=== PATIENT | male | born 2000 | race Caucasian/White ===

== ENCOUNTER 2023-05-10 17:01 | Emergency (ER) | payer BC, SELFPAY ==
[2023-05-10 17:12] VITALS: BP 116/76; PULSE 91; RESP 18; TEMP 37.3; O2SAT 98; BMI 26.4
--- NOTE | 2023-05-10 17:30 | ED.WOUNDLAC ---
HPI - Wound/Laceration General Time Seen by Provider: 17:30 Date Seen: 05/10/23 Chief Complaint: Laceration/Wound Stated Complaint: Lac middle L finger Time Seen by Provider: 05/10/23 17:05 Source: patient and RN notes reviewed Mode of arrival: ambulatory Limitations: no limitations History of Present Illness HPI narrative: Patient is a 22-year-old male coming in with complaint of a laceration on his finger. He cut his left 3rd finger while slicing vegetables for dinner. He tried skin glue but the flap kept opening and bleeding. Denies any other injury. No numbness tingling. We did look up his tetanus and his last tetanus was in 2010. He does agree to have this updated today. This wound happened just prior to arrival. Place: home Patient tetanus UTD: No Context: accidental Associated symptoms: none Related Data Home Medications Medication Instructions Recorded Confirmed No Known Home Medications 03/22/23 03/23/23 Allergies Allergy/AdvReac Type Severity Reaction Status Date / Time No Known Drug Allergies Allergy Verified 03/23/23 12:01 Review of Systems Narrative: As per HPI PFSH PFSH Social History Smoking Status: Current every day smoker Do you use any of these nicotine containing products: Vaping Products Second hand tobacco smoke exposure: No How often do you have a drink containing alcohol: 2-4 times a month How many standard drinks containing alcohol do you have on a typical day: 3 or 4 AUDIT-C Alcohol total score: 3 Non-prescribed substance use: former substance user Non-prescribed substance use details: denies current use service: No Exam Const: Vital Signs, click to edit/add: Vital Signs - 24 hr 05/10/23 17:12 Temperature 99.2 F Pulse Rate [Right Pulse Oximeter] 91 Respiratory Rate 18 Blood Pressure [Ri ght Upper Arm] 116/76 Pulse Oximetry 98 Oxygen Delivery Me thod Room Air Documenting provider has reviewed patient's vital signs: yes Other: Patient has a flap-type laceration along the lateral distal 3rd finger. It is along the lateral bulb of the finger. Does not go into the nail bed area but is just juxtaposed. It is about 0.75 cm in length. It is oblique in his angle into the subcutaneous tissue. There is some mild oozing. Reviewed with patient that this would certainly benefit from repair with stitches. I do not think glue is going to hold this down. He states his skin glue did not. Nursing staff had already cleaned and irrigated the wound. Course Course Hospital Course: Patient will have laceration repair, tetanus updated. He agrees to the plan. Vital Signs Vital signs: Initial Vital Signs Temperature 99.2 F 05/10/23 17:12 Temperature Source Temporal Artery Scan 05/10/23 17:12 Pulse Rate 91 05/10/23 17:12 Respiratory Rate 18 05/10/23 17:12 Blood Pressure 116/76 05/10/23 17:12 Blood Pressure Mean 89 05/10/23 17:12 Blood Pressure Position Sitting 05/10/23 17:12 Pulse Oximetry 98 05/10/23 17:12 Oxygen Delivery Method Room Air 05/10/23 17:12 Vital Signs Temperature 99.2 F 05/10/23 17:12 Pulse Rate 91 05/10/23 17:12 Respiratory Rate 18 05/10/23 17:12 Blood Pressure 116/76 05/10/23 17:12 Pulse Oximetry 98 05/10/23 17:12 Oxygen Delivery Method Room Air 05/10/23 17:12 Temperature 99.2 F 05/10/23 17:12 Pulse Rate 91 05/10/23 17:12 Respiratory Rate 18 05/10/23 17:12 Blood Pressure 116/76 05/10/23 17:12 Pulse Oximetry 98 05/10/23 17:12 Oxygen Delivery Method Room Air 05/10/23 17:12 Critical Care Time Critical Care Time Critical Care Time: No Discharge Plan Discharge Clinical Impression: Finger laceration Patient Disposition: Home, Self-Care Condition: Stable Instructions: Care For Your Stitches (ED), Finger Laceration (ED) Additional Instructions: Need to schedule a clinic follow-up in about 7-10 days to assess the wound for suture removal. May wash hands and shower but should otherwise keep the wound clean and dry. Use bandages and bacitracin certainly when up and about in public or if working. Need to try to keep this wound clean and dry. If there is any concern for infection, please seek re-evaluation. Tetanus was updated with a Tdap today. Prescriptions: No Action No Known Home Medications Follow Up/Referrals: Provider,Not a Local [Primary Care Provider] - Stand Alone Forms: [facility] Info Instructions Procedures Laceration Laceration 1: Pre procedure diagnosis: Left 3rd finger laceration Post procedure diagnosis: Same Name of person performing procedure: Karis Ortega Site: other (Left 3rd finger) Side (If applicable): left Size (cm): 0.75 Description: flap Depth: simple, single layer Local Anesthetic: lidocaine 2% Amount of anesthesia used (mL): 3 Pre-repair: wound explored and irrigated extensively Skin layer closed with: other (Ethilon) Size (cm): 4-0 Number of sutures: 4 Technique: simple, interrupted Estimated blood loss (if any): none Conclusion: patient tolerated procedure
[2023-05-10] MEDS: TETANUS/DIPHTH/PERTUSSIS 0.5 ML SYRINGE IM (17:58)
== END 2023-05-10 18:09 | disposition home or self-care (01) ==
PROVIDERS: Emergency Provider Family Medicine
DX: S61.213A Laceration without foreign body of left middle finger without damage to nail, initial encounter (principal); W26.0XXA Contact with knife, initial encounter
CPT/HCPCS: 12001; 90471; 90715; 99283

== ENCOUNTER 2023-07-28 07:47 | Emergency (ER) | payer BC, SELFPAY ==
[2023-07-28 08:12] VITALS: BP 145/93; RESP 18; TEMP 36.6; O2SAT 100; BMI 26.4
--- NOTE | 2023-07-28 08:59 | CRLHL7_ITS ---
For Patients: As a result of the Century Cures Act, medical imaging exams and procedure reports are released immediately into your electronic medical record. You may view this report before your referring provider. If you have questions, please contact your health care provider. Indication: Chronic pain Technique: Three views Comparison: None Findings: Normal mineralization and alignment. Normal periarticular soft tissues. Impression: No radiographic findings to explain chronic pain. Dictated by Jamie Lazaro MD @ 07/28/2023 9:37:17 AM (Electronically Signed)
--- NOTE | 2023-07-28 11:42 | ED_ITS ---
HPI - General Adult General Date Seen: 07/28/23 Chief complaint: Extremity Pain/Injury, Lower Stated complaint: R knee injury Time Seen by Provider: 07/28/23 07:59 Source: patient Mode of arrival: ambulatory Limitations: no limitations History of Present Illness HPI narrative: Patient is a 22-year-old male who presents for evaluation of right knee pain which has been ongoing for about a year. 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 Over the course of doing that he developed pain in his right knee which is located gener ally on the medial side, is sharp, bothers him more with the knees bent. He has had some associated clicking and sensation of instability. He says he had to work for 3 weeks straight at that time, then was off for 2 months and over that. It seemed to improve. However, since then it has continued to bother him on and off. 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 He also noted that he developed a little bruising on the medial knee. He has not otherwise had any swelling, he is able to move the knee freely. Related Data Home Medications Medication Instructions Recorded Confirmed No Known Home Medications 03/22/23 03/23/23 Allergies Allergy/AdvReac Type Severity Reaction Status Date / Time No Known Drug Allergies Allergy Verified 03/23/23 12:01 [facility] Social History Smoking Status: Current every day smoker Do you use any of these nicotine containing products: Vaping Products Second hand tobacco smoke exposure: No How often do you have a drink containing alcohol: 2-4 times a month How many standard drinks containing alcohol do you have on a typical day: 3 or 4 AUDIT-C Alcohol total score: 3 Non-prescribed substance use: former substance user Non-prescribed substance use details: denies current use service: No Exam Narrative: Exam Narrative: Vital signs reviewed In general, alert, well-appearing male. Extremities: Examination of the right knee shows be generally normal in appearance, no erythema warmth, no effusion. He does have a small bruise noted at the distal portion of the medial knee. Range of motion is full, no obvious instability. Const: Vital Signs, click to edit/add: Vital Signs - 24 hr 07/28/23 08:12 Temperature 97.9 F Respiratory Rate 18 Blood Pressure [Ri ght Upper Arm] 145/93 H Pulse Oximetry 100 Oxygen Delivery Me thod Room Air Documenting provider has reviewed patient's vital signs: yes Course Course ED Course: I did an x-ray of the right knee which is negative for any obvious bony pathology. Discussed with him that this could potentially be a meniscal issue which is not something we would see on plain film. Would recommend orthopedic follow-up for decision as to whether not he needs more imaging in the form of MRI. In the meantime, a gave him a knee immobilizer to use for the next couple of days or as needed for comfort. Ice, ibuprofen or Tylenol if needed. He declines the need for work note, he says he does not like to miss work but thinks he can just do light duty. Vital Signs Vital signs: Initial Vital Signs Temperature 97.9 F 07/28/23 08:12 Temperature Source Temporal Artery Scan 07/28/23 08:12 Respiratory Rate 18 07/28/23 08:12 Blood Pressure 145/93 H 07/28/23 08:12 Blood Pressure Mean 110 H 07/28/23 08:12 Blood Pressure Position Sitting 07/28/23 08:12 Pulse Oximetry 100 07/28/23 08:12 Oxygen Delivery Method Room Air 07/28/23 08:12 Vital Signs Temperature 97.9 F 07/28/23 08:12 Respiratory Rate 18 07/28/23 08:12 Blood Pressure 145/93 H 07/28/23 08:12 Pulse Oximetry 100 07/28/23 08:12 Oxygen Delivery Method Room Air 07/28/23 08:12 Temperature 97.9 F 07/28/23 08:12 Respiratory Rate 18 07/28/23 08:12 Blood Pressure 145/93 H 07/28/23 08:12 Pulse Oximetry 100 07/28/23 08:12 Oxygen Delivery Method Room Air 07/28/23 08:12 Discharge Plan Discharge Clinical Impression: Injury of knee, right Patient Disposition: Home, Self-Care Condition: Stable Instructions: Knee Pain (ED) Additional Instructions: Knee immobilizer for the next couple of days or as needed for comfort. Ice may be helpful, ibuprofen or Tylenol are fine if needed for pain. Orthopedic follow-up in the next week or 2, call [phone] to schedule an appointment. Prescriptions: No Action No Known Home Medications Follow Up/Referrals: Provider,Not a Local [Primary Care Provider] - Stand Alone Forms: [facility] Info Instructions
== END 2023-07-28 10:36 | disposition home or self-care (01) ==
PROVIDERS: Emergency Provider Emergency Medicine
DX: M25.561 Pain in right knee (principal)
CPT/HCPCS: 73562; 99283; 99284